=== PATIENT | female | born 1955 | race African-American/Black ===

== ENCOUNTER 2017-04-11 16:55 | Emergency (ER) | payer MEDICAID ==
[~2017-04-11] VITALS: Ht 167.6 cm; Wt 77.1 kg
[2017-04-11] MEDS ORDERED: GABAPENTIN100 MG ORAL (17:05)
[2017-04-11] MEDS ORDERED: GLIPIZIDE5 MG ORAL (17:05)
[2017-04-11] MEDS ORDERED: METFORMIN HCL500 M1 ORAL (17:05)
[2017-04-11] MEDS ORDERED: LISINOPRIL2.5 MG ORAL (17:06)
[2017-04-11] MEDS ORDERED: PENLAC6.6 M1 TP (17:13)
[2017-04-11 17:19] VITALS: BP 169/99
[2017-04-11 17:21] VITALS: BP 169/99
--- NOTE | 2017-04-11 17:21 | Emergency Room Report ---
History of Present Illness General Chief Complaint: Pain Source: Patient Present Illness HPI [id number] walk in with "infection" to toenails both feet for ?a week Denies fever/chills, blisters, redness, warmth, pus to area Known diabetic Denies loss of sensation to feet Allergies: Coded Allergies: No Known Allergies (Unverified , 04/11/17) Patient History Past Medical History: DM Past Surgical History: none Pertinent Family History: none Social History: Denies: smoking, alcohol use, drug use Now: No Immunizations: UTD Reviewed Nursing Documentation: PMH: Agreed, PSxH: Agreed Nursing Documentation-PMH Past Medical History: No Stated History Hx Hypertension: Yes Hx Diabetes: Yes Review of Systems All Other Systems: negative except mentioned in HPI Physical Exam Vital Signs Date Time Temp Pulse Resp B/P (MAP) Pulse Ox O2 Delivery O2 Flow Rate FiO2 04/11/17 17:01 97.5 94 18 169/99 97 Room Air Sp02 EP Interpretation: reviewed, normal General Appearance: normal inspection, well appearing, no apparent distress, alert Head: atraumatic ENT: normal ENT inspection, hearing grossly normal, normal voice Neck: normal inspection, full range of motion, supple, no bony tend Respiratory: normal inspection, lungs clear, normal breath sounds, no respiratory distress, no retraction, no wheezing Cardiovascular #1: regular rate, rhythm, no edema Gastrointestinal: normal inspection, normal bowel sounds, non tender, soft, no guarding, no hernia Genitourinary: no CVA tenderness Musculoskeletal: normal inspection, back normal, normal range of motion, Darlene' s Sign negative Neurologic: normal inspection, alert, responsive, speech normal Psychiatric: normal inspection, judgement/insight normal, mood/affect normal Skin: normal inspection, other - Bilateral toenails: discoloratio/yellow, deformity, and thickening of nails Medical Decision Making Diagnostic Impression: Primary Impression: Tinea pedis Qualified Codes: B35.3 - Tinea pedis ER Course Tinea pedis vs onychomycosis VSS Afebrile No cellulitis Sensation intact Rx provided Close pmd followup for ?need for oral long-tern terbinafine DC home Last Vital Signs Date Time Temp Pulse Resp B/P (MAP) Pulse Ox O2 Delivery O2 Flow Rate FiO2 04/11/17 17:01 97.5 94 18 169/99 97 Room Air Status: improved Disposition: HOME, SELF-CARE Condition: Improved Scripts Ciclopirox (PENLAC) 6.6 Ml Solution 6.6 ML TP DAILY for 7 Days, #1 UNIT Prov: JACKIE FONG M.D. 04/11/17 Patient Instructions: Athlete's Foot Additional Instructions: Apply to adjacent skin and affected nails daily. Remove with alcohol every 7 days. Follow up with your primary care doctor if no improvement as you may need oral medication to be prescribed by your PRIMARY care doctor after blood tests JACKIE FONG M.D. Apr 11, 2017 17:21
== END 2017-04-11 17:31 | disposition home or self-care (01) ==
LOC: EMR 17:05
DX: B35.9 Dermatophytosis, unspecified (principal); E11.9 Type 2 diabetes mellitus without complications; I10 Essential (primary) hypertension
CPT/HCPCS: 99283